=== PATIENT | female | born 1940 | race Caucasian/White ===

== ENCOUNTER 2016-11-01 13:05 | Inpatient (IN) ==
[2016-11-01] MEDS ORDERED: SODIUM CHLORIDE 0.9% 500 ML IV STA (13:29)
[2016-11-01] MEDS ORDERED: cefTRIAXone 1,000 MG in SODIUM CHLORIDE 0.9% 100 ML IV STA (13:35)
[2016-11-01] MEDS ORDERED: ACETAMINOPHEN 325 MG TABLET PO ONE (13:35)
--- NOTE | 2016-11-01 13:40 | Emergency Department Note ---
Reji Gardner Gwan, am scribing for, and in the presence of, Joshua Jones MD 13:35 . Karen Gardner James D, MD, personally performed the services described in this documentation, ascribed by Lloyd Mendoza in my presence, and it is both accurate and complete [id number] . Arrival - Arrival Chief Complaint: Non-Specific Stated Complaint: can't walk,talking out of head,weak ED Nursing Triage Note: Pt c/o GARDNER, back/leg pain, family reports pt has been talking out of her head and not able to stand and walk since Tuesday. Mode of Arrival: Wheelchair Limitations: No Limitations Source: Significant other, Old Records Reviewed, RN Notes Reviewed - History of Present Illness HPI Narrative: Patient is a 75 y/o white female who presents to the ED fore further evaluation of confusion with an onset 9 days ago. At time of traige, pt's temperature was 101.0. Patient has obvious confused. stated that pt is followed by Dr. Marquez. He confirmed that patient has gotten worse since last appointment in office. He denies that pt has had dysuria or that she has been using her walker. Per PCP, this is not baseline for patient. Onset (ago): week(s) Consistency: constant Severity: moderate Allergies/Adverse Reactions: Allergies Allergy/AdvReac Type Severity Reaction Status Date / Time No Known Allergies Allergy Verified 02/03/16 14:52 Home Medications: Home Medications Medication Instructions Recorded Confirmed Type Gabapentin Cap/Tab [Neurontin 300 mg PO BID 02/03/16 11/01/16 History Cap/Tab] LORazepam TAB [Ativan Tab] 1 mg PO BEDTIME 02/03/16 11/01/16 History Solifenacin Succinate [Vesicare] 10 mg PO DAILY 02/03/16 11/01/16 History Metoprolol Tartrate Tab [Lopressor 100 mg PO BID tablet 02/11/16 11/01/16 Rx Tab] Review of System - Review of System 12 point system: reviewed and no additional remarkable complaints except as stated - Review of System Constitutional: Absent: chills, fever Eyes: Absent: discharge, pain Head/Ears/Nose/Throat: Absent: earache Respiratory: Absent: cough Cardiovascular: Absent: chest pain, palpitations Gastrointestinal: Absent: abdominal pain, nausea, constipation Genitourinary female: Absent: abnormal menses, dysuria, discharge Musculoskeletal: Absent: arm pain, back pain, leg pain Skin: Absent: rash, lesions Neurological: Present: as per HPI, confusion Medical,Surgical,& Family Hx - Medical History Cardio: History of: Cardiac Dysrhythmia (TACHYCARDIA PRIOR TO PACEMAKER), Hypertension, Pacemaker (2009), Cardiovascular Problems (DR LEO) Neurology: No history of: Seizures HEENT: History of: Eye Problem (GLASSES), Dental Problems (UPPER DENTURE) Rheumatology: History of;: Rheumatoid Arthritis Genitourinary: History of: Bladder Problem (FREQUENTLY URINATION AND INCONTIENCE ) Gastrointestinal: History of: GERD (PT HISTORY) Musculoskeletal: History of: Back/Neck Problems (BACK SURGERY 2006/2010/2014) Other: History of: Anesthesia Reactions (NAUSEA AND VOMITING WITH NOSE SURGERY) , Cancer (SKIN CA NOSE), Miscellaneous Medical Problems (PCP DR ANDREA MARQUEZ) - Surgical History Abdominal Surgeries: Surgical HX of: EGD Reproductive Surgeries: Surgical HX of;: Tubal Ligation - Family History Family History: Reports;: Family Heart Disease (FATHER) - Social History Smoking Status: Never smoker Exam Physical Examination: GENERAL: This is a white female in no apparent distress. VITAL SIGNS: HEENT: Head is normocephalic and atraumatic. Pupils are equally round and reactive to light. Extraocular movement are intact. Oropharynx is benign with moist mucous membranes. NECK: Neck is soft and supple without tenderness. There are no masses. There is no lymphadenopathy. LUNGS: Lungs are clear to auscultation bilaterally. Chest rises symmetrically. There is no chest wall tenderness. CV: Heart is regular rate and rhythm without murmurs, rubs, or gallops. ABDOMEN: Abdomen is soft, non-tender to palpation. There are no abnormal masses palpated. There is no organomegaly. Bowel sounds are present and active. SKIN: Skin is warm and dry. No rash. EXTREMITIES: Patient has full range of motion without tenderness. There is no pedal edema. NEUROLOGIC: Awake, alert, and oriented 2. Patient is disoriented to time and place.. Cranial nerves II through XII are grossly intact. There are no motorsensory deficits. PSYCHIATRIC: Normal affect. Normal mood. Poor insight. Vital Signs: Vital Signs Temperature 101 F H 11/01/16 14:56 Pulse Rate 85 11/01/16 14:56 Respiratory Rate 20 11/01/16 14:56 Blood Pressure 151/78 11/01/16 14:56 O2 Sat by Pulse Oximetry 95 11/01/16 13:31 Course - Consultations Consultation #1: Discussed with Dr. Marquez. Patient will be admitted to his service. Initial orders written for him. He will assume patient's care upon arrival to the [facility]. Time: 13:39 Results - Labs CBC & BMP: 11/01/16 14:20 11/01/16 14:02 Lab Results: I have reviewed the patients labs Labs: Laboratory Tests 11/01/16 14:20 WBC 10.1 RBC 4.24 Hgb 13.8 Hct 38.8 Plt Count 131 Neut % (Auto) 86.4 H Lymph % (Auto) 5.5 L Neut # (Auto) 8.7 H Lymph # (Auto) 0.6 L - Diagnostic Findings Procedure: Chest x-ray: report reviewed by me, image reviewed by me (Stable is apparent atrioventricular permanent pacemaker. Localized eventration of the left hemidiaphragm with atelectasis at the lung bases. Left shoulders calcific tendinitis. ), CT: report reviewed by me, image reviewed by me (Head CT: Progressive atrophy and extensive microvasculkar disease. This finding could obsure small age-indeterminate ischemic infarction. There is associated minimal compensatory dilataion of the ventricles. ) Disposition Clinical Impression: Altered mental status, Fever Case discussed with: patient, patient's family Disposition: Still a Patient Condition: Stable Time of Disposition: 13:39
--- NOTE | 2016-11-01 13:46 | CT Report ---
Referring physician: Joshua Jones Exam: CT brain without contrast Date: 11/01/2016 Comparison: 09/05/2009 Reason: Alteration of consciousness Technique: Axial images of the head were obtained without the use of contrast. Total DLP was 914.60 mGy*cm. Findings: The ventricles are diffusely larger in size with no midline displacement. Progressive atrophy and diffuse cerebral hypodensities. No evidence of hemorrhage, mass, extracerebral collection, or skull pathology. The mastoid air cells and visualized paranasal sinuses are clear. Impression: Progressive atrophy and extensive microvascular disease. This finding could obscure small age-indeterminate ischemic infarction. There is associated minimal compensatory dilatation of the ventricles. The CT exam was performed using one or more of the following dose reduction techniques: Automated exposure control and adjustment of the mA and/or kV according to patient size. PROCEDURE INTERPRETED AT [facility] DEPARTMENT OF RADIOLOGY Final Report Signed by: Dr. Emiliana Calvo
--- NOTE | 2016-11-01 13:50 | XRay Report ---
Portable chest Date: 11/01/2016 Clinical history: Alteration of consciousness Comparison: 02/03/2016 Technique: Portable AP sitting chest Findings: The heart is normal in size with stable left subclavian atrioventricular permanent pacemaker. Persistent localized eventration left hemidiaphragm with minimal atelectasis at the lung bases. Stable mediastinum with degenerative changes. Calcific findings adjacent to the left humeral head. Impression: Stable is apparent atrioventricular permanent pacemaker. Localized eventration of the left hemidiaphragm with atelectasis at the lung bases. Left shoulder calcific tendinitis. PROCEDURE INTERPRETED AT [facility] DEPARTMENT OF RADIOLOGY Final Report Signed by: Dr. Emiliana Calvo
[2016-11-01 14:22] LABS: Basophils % 0.1 % (0.0-0.8); Eosinophils % 0.1 % (0.00-10.9); Hematocrit 38.8 VOL% (35.7-47.0); Hemoglobin 13.8 GM/DL (12.0-16.0); Immature Granulocytes % 0.3 %; Immature Granulocytes Absolute 0.03 #; Lymphocytes # 0.6 10*3/uL (1.4-4.0); Lymphocytes % 5.5 % (21.3-54.2); Mean Corpuscular HGB Conc 35.6 GM/DL (32-36); Mean Corpuscular Hemoglobin 33 PG (27-34); Mean Corpuscular Volume 91.5 FL (87-102); Monocytes # 0.8 10*3/uL (0.11-0.8); Monocytes % 7.6 % (1.7-12.7); Neutrophils # 8.7 10*3/uL (1.4-7.4); Neutrophils % 86.4 % (38.7-73.9); Platelet Count 131 T/CUMM (130-400); Red Blood Count 4.24 MC/CUMM (3.8-5.5); Red Cell Distribution Width 12.4 % (9.3-17.3); White Blood Count 10.1 T/CUMM (4-12)
[2016-11-01 14:59] LABS: Alanine Aminotransferase 34 U/L (13-56); Albumin 3.5 G/DL (3.4-5.0); Alkaline Phosphatase 90 U/L (45-117); Aspartate Amino Transferase 26 U/L (0-37); Blood Urea Nitrogen 17 MG/DL (7-18); Calcium 8.8 MG/DL (8.5-10.1); Glucose 140 MG/DL (74-106); Osmolality,Calculated 265.7 MOS/KG (273-304); Potassium 3.9 MMOL/L (3.5-5.1); Sodium 131 MMOL/L (136-145); Thyroid Stimulating Hormone 0.085 uIU/ml (0.358-3.74); Total Protein 7.3 G/DL (6.4-8.3); Troponin I Only < 0.015 NG/ML (0.00-0.045)
[2016-11-01 15:01] LABS: Folate > 24.0 NG/ML (5.4-24.0); Vitamin B12 474 PG/ML (211-911)
[2016-11-01] MEDS ORDERED: cefTRIAXone 1,000 MG VIAL ONE (15:22)
[2016-11-01] MEDS ORDERED: ACETAMINOPHEN 325 MG TABLET ONE (15:33)
[2016-11-01 15:53] LABS: PT Patient Result 10.3 SECS; Partial Thromboplastin Time 28.7 SECS (0-40)
--- NOTE | 2016-11-01 16:05 | Family Practice History&Phys ---
Assessment and Plan (1) Altered mental status Status: Acute Assessment and plan: In view of history of fever and present urinary symptoms this is probably a urosepsis with encephalopathy . Will await urine and obtain a C&S. Current Visit: Yes (2) Fever Status: Acute Assessment and plan: Probably secondary to urinary tract infection but need to collect further data Current Visit: Yes (3) Permanent pacemaker Status: Chronic Assessment and plan: Stable at present Current Visit: Yes (4) Rheumatoid arthritus Status: Chronic Assessment and plan: Stable on present medication Current Visit: Yes (5) Hypertension Status: Chronic Assessment and plan: Stable at present Current Visit: Yes (6) Chronic pain syndrome Status: Chronic Assessment and plan: Patient being treated pain center. Current Visit: Yes History of Present Illness Chief complaint: Mental confusion and fever History of present illness: Ms. Escobar is a 75 year old female Patient is a 75 y/o white female who presents to the ED fore further evaluation of confusion with an onset 9 days ago. At time of traige, pt's temperature was 101.0. Patient is obviously confused. Her mental state is an obvious significant change from her baseline. With her fever and other changes this most likely is encephalopathy secondary to infection. In view of history we will admit further evaluation therapy Home Medications Medication Instructions Recorded Confirmed Type Gabapentin Cap/Tab [Neurontin 300 mg PO BID 02/03/16 11/01/16 History Cap/Tab] LORazepam TAB [Ativan Tab] 1 mg PO BEDTIME 02/03/16 11/01/16 History Solifenacin Succinate [Vesicare] 10 mg PO DAILY 02/03/16 11/01/16 History Metoprolol Tartrate Tab [Lopressor 100 mg PO BID tablet 02/11/16 11/01/16 Rx Tab] Allergies Allergy/AdvReac Type Severity Reaction Status Date / Time No Known Allergies Allergy Verified 02/03/16 14:52 Medical,Surgical,& Family Hx - Medical History Cardio: History of: Cardiac Dysrhythmia (TACHYCARDIA PRIOR TO PACEMAKER), Hypertension, Pacemaker (2008), Cardiovascular Problems (DR LEO) Neurology: No history of: Seizures HEENT: History of: Eye Problem (GLASSES), Dental Problems (UPPER DENTURE) Rheumatology: History of;: Rheumatoid Arthritis Genitourinary: History of: Bladder Problem (FREQUENTLY URINATION AND INCONTIENCE ) Gastrointestinal: History of: GERD (PT HISTORY) Musculoskeletal: History of: Back/Neck Problems (BACK SURGERY 2006/2010/2014) Other: History of: Anesthesia Reactions (NAUSEA AND VOMITING WITH NOSE SURGERY) , Cancer (SKIN CA NOSE), Miscellaneous Medical Problems (PCP DR ANDREA OLIVARES) - Surgical History Abdominal Surgeries: Surgical HX of: EGD Reproductive Surgeries: Surgical HX of;: Tubal Ligation - Family History Family History: Reports;: Family Heart Disease (FATHER) - Social History Smoking Status: Never smoker Frequency of Alcohol Use: None Type of Drug Use: None Marital Status: Lives With:: Spouse Functional capacity: independent ambulation Exam - Constitutional Vitals: Period Temp Pulse Resp BP Sys/Kelly Pulse Ox Last 24 Hr 99.7 F-101.0 F 60-87 18-20 141-151/68-78 94-97 General appearance: mild distress - Head Head exam: Present: normal inspection - ENT ENT exam: Present: normal exam - Neck Neck exam: Present: normal inspection - Respiratory Respiratory exam: Present: clear to auscultation bilaterally - Cardiovascular Cardiovascular exam: Present: irregular rhythm - GI/Abdominal GI/Abdominal exam: Present: normal bowel sounds, soft, other (Slight epigastric tenderness) - Extremities Exam Extremities exam: Present: other (Pain and swelling in her right knee) - Back Exam Back exam: Present: normal inspection - Neurological Exam Neurological exam: Present: altered, other (Patient is confused and disoriented at time of admission) - Psychiatric Psychiatric exam: Present: flat affect - Skin Skin exam: Present: normal color Results - Labs CBC & BMP: 11/02/16 05:15 11/02/16 05:15
[2016-11-01] MEDS ORDERED: ONDANSETRON 4 MG/2 ML VIAL IV PRN (16:23)
[2016-11-01] MEDS: SODIUM CHLORIDE 0.9% 1,000 ML IV SCH (16:30)
[2016-11-01] MEDS: SOLIFENACIN 5 MG TABLET PO SCH (18:14)
[2016-11-01 19:54] LABS: Ammonia 29 UMOL/L (11-32)
[2016-11-01] MEDS: LORazepam 1 MG TABLET PO SCH (21:23)
[2016-11-01] MEDS: GABAPENTIN 300 MG CAPSULE PO SCH (21:23)
[2016-11-01] MEDS: METOPROLOL TARTRATE 100 MG TABLET PO SCH (21:23)
[2016-11-01] MEDS: ACETAMINOPHEN 325 MG TABLET PO PRN (21:24)
[2016-11-01] MEDS: DOCUSATE SODIUM 100 MG CAPSULE PO SCH (21:24)
[2016-11-02] MEDS: SODIUM CHLORIDE 0.9% 1,000 ML IV SCH ×3 (00:30→18:12)
[2016-11-02 05:54] LABS: Basophils % 0.3 % (0.0-0.8); Eosinophils # 0.1 10*3/uL (0.0-0.87); Eosinophils % 0.7 % (0.00-10.9); Hematocrit 35.9 VOL% (35.7-47.0); Hemoglobin 12.3 GM/DL (12.0-16.0); Immature Granulocytes % 0.4 %; Immature Granulocytes Absolute 0.04 #; Lymphocytes # 1.5 10*3/uL (1.4-4.0); Lymphocytes % 16.3 % (21.3-54.2); Mean Corpuscular HGB Conc 34.3 GM/DL (32-36); Mean Corpuscular Hemoglobin 32 PG (27-34); Mean Corpuscular Volume 92.8 FL (87-102); Mean Platelet Volume 11.4 FL (9.6-12.0); Monocytes # 1.3 10*3/uL (0.11-0.8); Monocytes % 14.3 % (1.7-12.7); Neutrophils # 6.2 10*3/uL (1.4-7.4); Platelet Count 196 T/CUMM (130-400); Red Blood Count 3.87 MC/CUMM (3.8-5.5); Red Cell Distribution Width 12.5 % (9.3-17.3); White Blood Count 9.1 T/CUMM (4-12)
[2016-11-02 06:21] LABS: Calcium 8.3 MG/DL (8.5-10.1); Potassium 3.9 MMOL/L (3.5-5.1)
[2016-11-02 06:34] LABS: Free T4 (Free Thyroxine) 1.54 NG/DL (0.76-1.46); Thyroid Stimulating Hormone 0.072 uIU/ml (0.358-3.74)
--- NOTE | 2016-11-02 09:08 | XRay Report ---
Exam: XR knee 2V RT Date: 11/02/2016 8:10 AM Comparison: None Indication: Severe right knee pain Technique:[AP and lateral right knee] Findings: Knee joint space narrowing especially the patellofemoral space. Patellar osteophytes. Small to moderate knee joint effusion with no fracture or dislocation. Minimal soft tissue calcifications. Impression: Minimal DJD with small to moderate knee joint effusion. No acute fracture or dislocation. PROCEDURE INTERPRETED AT [facility] DEPARTMENT OF RADIOLOGY Final Report Signed by: Dr. Emiliana Calvo
[2016-11-02] MEDS: PANTOPRAZOLE 40 MG TABLET PO SCH (09:10)
[2016-11-02] MEDS: METOPROLOL TARTRATE 100 MG TABLET PO SCH ×2 (09:10→20:57)
[2016-11-02] MEDS: GABAPENTIN 300 MG CAPSULE PO SCH ×2 (09:10→20:57)
[2016-11-02] MEDS: SOLIFENACIN 5 MG TABLET PO SCH (09:10)
[2016-11-02] MEDS: DOCUSATE SODIUM 100 MG CAPSULE PO SCH ×2 (09:10→20:57)
[2016-11-02 10:05] LABS: Apearance,Urine Slightly Hazy (Clear); Bilirubin,Urine Negative (Negative); Blood, Urine Small mg/dL (Negative); Glucose,Urine (UA) Negative (Negative); Ketones,Urine Negative (Negative); Nitrite,Urine Positive (Negative); Protein,Urine Negative; RBC,Urine <1 /HPF (0-4); Urine Color Yellow (Yellow); Urine Specific Gravity 1.008 (1.001-1.035); Urine Urobilinogen < 2.0 EU/DL (0.2-1.0); WBC,Urine 20 /HPF (0-6)
--- NOTE | 2016-11-02 13:56 | Family Practice Progress Note ---
Family Practice - PN: Subj Interval history: Patient much more alert today. States she doesn't remember anything about yesterday. Patient never collected a urine specimen yesterday prior to starting her antibiotics. She has urinary incontinence and was not able to collect a specimen. Had staph pain a catheter urine this a.m. which is positive for urinary tract infection. I will obtain a culture but it may not grow because she's already been started on antibiotics. I do feel that this is the etiology of her mental status change secondary to encephalopathy. Patient complaining of knee and joint pain today. She has chronic joint and back pain. Reviewed lab and other studies. We'll obtain an x-ray of her knee and started on physical therapy. We'll otherwise continue present antibiotic treatment Exam (Progress Note) - Constitutional Vitals: Period Temp Pulse Resp BP Sys/Kelly Pulse Ox Last 24 Hr 98.5 F-101 F 69-87 16-20 118-153/54-80 92-99 Results - Labs CBC & BMP: 11/02/16 05:15 11/02/16 05:15 Assessment and Plan (1) Altered mental status Status: Acute Assessment and plan: In view of history of fever and present urinary symptoms this is probably a urosepsis with encephalopathy . Will await urine and obtain a C&S. Current Visit: Yes (2) Fever Status: Acute Assessment and plan: Probably secondary to urinary tract infection but need to collect further data Current Visit: Yes (3) Permanent pacemaker Status: Chronic Assessment and plan: Stable at present Current Visit: Yes (4) Rheumatoid arthritus Status: Chronic Assessment and plan: Stable on present medication Current Visit: Yes (5) Hypertension Status: Chronic Assessment and plan: Stable at present Current Visit: Yes (6) Chronic pain syndrome Status: Chronic Assessment and plan: Patient being treated pain center. Current Visit: Yes
--- NOTE | 2016-11-02 17:42 | Neurology Consult Note ---
History of Present Illness History of present illness: Ms. Escobar is a 75 year old right-handed white lady who is admitted to the hospital with acute change in mental status. Family reported that she has been talking out of her head and got confused and disoriented. Patient has been keeping a low-grade infection somewhere because she came in with a fever as well. Urine specimen reveals some signs of UTI. Family denies any history of dementia, memory difficulties. She is quite active at baseline. CT of the head reveals no acute abnormalities. Home Medications Medication Instructions Recorded Confirmed Type Gabapentin Cap/Tab [Neurontin 300 mg PO BID 02/03/16 11/01/16 History Cap/Tab] LORazepam TAB [Ativan Tab] 1 mg PO BEDTIME 02/03/16 11/01/16 History Solifenacin Succinate [Vesicare] 10 mg PO DAILY 02/03/16 11/01/16 History Metoprolol Tartrate Tab [Lopressor 100 mg PO BID tablet 02/11/16 11/01/16 Rx Tab] Allergies Allergy/AdvReac Type Severity Reaction Status Date / Time No Known Allergies Allergy Verified 02/03/16 14:52 12 point system: reviewed and no additional remarkable complaints except as stated Medical,Surgical,& Family Hx - Medical History Cardio: History of: Cardiac Dysrhythmia (TACHYCARDIA PRIOR TO PACEMAKER), Hypertension, Pacemaker (2008), Cardiovascular Problems (DR LEO) Neurology: No history of: Seizures HEENT: History of: Eye Problem (GLASSES), Dental Problems (UPPER DENTURE) Rheumatology: History of;: Rheumatoid Arthritis Genitourinary: History of: Bladder Problem (FREQUENTLY URINATION AND INCONTIENCE ) Gastrointestinal: History of: GERD (PT HISTORY) Musculoskeletal: History of: Back/Neck Problems (BACK SURGERY 2006/2010/2014) Other: History of: Anesthesia Reactions (NAUSEA AND VOMITING WITH NOSE SURGERY) , Cancer (SKIN CA NOSE), Miscellaneous Medical Problems (PCP DR ANDREA OLIVARES) - Surgical History Abdominal Surgeries: Surgical HX of: EGD Reproductive Surgeries: Surgical HX of;: Tubal Ligation - Family History Family History: Reports;: Family Heart Disease (FATHER) - Social History Smoking Status: Never smoker Frequency of Alcohol Use: None Type of Drug Use: None Exam - Constitutional Vitals: Period Temp Pulse Resp BP Sys/Kelly Pulse Ox Last 24 Hr 98.5 F-100.3 F 69-81 16-20 118-153/54-80 92-99 Exam: GENERAL: Patient is in no acute distress. NECK: Neck is supple. There is no JVD. No carotid bruits present. No thyroid masses. CVS: First and second heart sounds are normal. There is no S3 present. Regular rate and rhythm. RESPIRATORY: Lungs are clear to auscultation without any rales or rhonchi. ABDOMEN: Soft and non-tender. Bowel sounds are present. There is no hepatosplenomegaly. EXT: There is no palpable edema. Peripheral pulses are present. Skin: No rashes Central Nervous system: General: Alert, awake and Oriented x 3 Speech: Fluent Comprehension: Fair Facial expressions: Normal Cranial Nerves: CN1/Olfactory: Normal CN II/ Optic: Normal, Visual Schmidt unreliable CN III, and : SONA & EOMI CN V: Normal & intact CN VII: face is symmetric CNVIII: Normal CN XI/X/XI/XII: Intact and Normal Motor: Bulk and Tone is normal. Strength in the right 5/5 Strength in the left 5/5 Sensory: Grossly intact for all the modalities of PP, LT and temp sense Reflexes: 1+ and symmetrical Cerebellar function: Normal finger to nose and heel to quijano testing. Toes: Equivocal Gait: Not tested at this time Results - Labs CBC & BMP: 11/02/16 05:15 11/02/16 05:15 Assessment and Plan (1) Altered mental status Status: Acute Assessment and plan: I agree that this is likely due to the low-grade infection/UTI. No evidence of a stroke, TIAs, epilepsy or seizures Certainly an underlying dementia cannot be excluded entirely. Recommend further workup as an outpatient Thank you for the consult Current Visit: Yes
[2016-11-02] MEDS: LORazepam 1 MG TABLET PO SCH (20:57)
[2016-11-03] MEDS: SODIUM CHLORIDE 0.9% 1,000 ML IV SCH ×3 (00:58→23:32)
[2016-11-03 04:09] LABS: Basophils % 0.2 % (0.0-0.8); Eosinophils # 0.1 10*3/uL (0.0-0.87); Eosinophils % 0.7 % (0.00-10.9); Hemoglobin 10.7 GM/DL (12.0-16.0); Immature Granulocytes % 0.5 %; Immature Granulocytes Absolute 0.04 #; Lymphocytes # 1.5 10*3/uL (1.4-4.0); Lymphocytes % 17.2 % (21.3-54.2); Mean Corpuscular HGB Conc 34.5 GM/DL (32-36); Mean Corpuscular Hemoglobin 32 PG (27-34); Mean Corpuscular Volume 91.4 FL (87-102); Mean Platelet Volume 11.6 FL (9.6-12.0); Monocytes # 1.1 10*3/uL (0.11-0.8); Monocytes % 12.2 % (1.7-12.7); Neutrophils # 6.1 10*3/uL (1.4-7.4); Neutrophils % 69.2 % (38.7-73.9); Platelet Count 165 T/CUMM (130-400); Red Blood Count 3.39 MC/CUMM (3.8-5.5); Red Cell Distribution Width 12.5 % (9.3-17.3); White Blood Count 8.8 T/CUMM (4-12)
[2016-11-03 04:36] LABS: Calcium 8.3 MG/DL (8.5-10.1); Osmolality,Calculated 271.8 MOS/KG (273-304); Potassium 3.6 MMOL/L (3.5-5.1)
[2016-11-03] MEDS ORDERED: MAGNESIUM HYDROXIDE SUSP 30 ML UDCUP PO ONE (07:55)
[2016-11-03] MEDS ORDERED: BENZOCAINE/MENTHOL LOZENGE 18/BOX PO PRN (07:56)
--- NOTE | 2016-11-03 08:00 | Family Practice Progress Note ---
Family Practice - PN: Subj Interval history: Patient back to her normal mental status this am. Complaining of sore throat and constipation this a.m. Still has pain in her knees which is more of a chronic complaint. X-rays revealed degenerative joint disease. Urine is positive urinary tract infection. She was given Rocephin in the emergency room which will probably affect culture but we will obtained a culture which is pending of. Will start on Levaquin today. Will increase activity and if patient does well consider discharge a.m. physical is otherwise stable Exam (Progress Note) - Constitutional Vitals: Period Temp Pulse Resp BP Sys/Kelly Pulse Ox Last 24 Hr 99.4 F-100.2 F 61-103 16-20 135-163/70-73 96-97 Results - Labs CBC & BMP: 11/03/16 03:09 11/03/16 03:09 Assessment and Plan (1) Altered mental status Status: Acute Assessment and plan: In view of history of fever and present urinary symptoms this is probably a urosepsis with encephalopathy . Will await urine and obtain a C&S. Current Visit: Yes (2) Fever Status: Acute Assessment and plan: Probably secondary to urinary tract infection but need to collect further data Current Visit: Yes (3) Permanent pacemaker Status: Chronic Assessment and plan: Stable at present Current Visit: Yes (4) Rheumatoid arthritus Status: Chronic Assessment and plan: Stable on present medication Current Visit: Yes (5) Hypertension Status: Chronic Assessment and plan: Stable at present Current Visit: Yes (6) Chronic pain syndrome Status: Chronic Assessment and plan: Patient being treated pain center. Current Visit: Yes
[2016-11-03] MEDS: DOCUSATE SODIUM 100 MG CAPSULE PO SCH ×2 (09:52→21:31)
[2016-11-03] MEDS: GABAPENTIN 300 MG CAPSULE PO SCH ×2 (09:52→21:31)
[2016-11-03] MEDS: METOPROLOL TARTRATE 100 MG TABLET PO SCH ×2 (09:52→21:32)
[2016-11-03] MEDS: PANTOPRAZOLE 40 MG TABLET PO SCH (09:52)
[2016-11-03] MEDS: SOLIFENACIN 5 MG TABLET PO SCH (09:52)
[2016-11-03] MEDS: LEVOFLOXACIN INJ 500 MG in PREMIX 1 EACH IV SCH (09:53)
[2016-11-03] MEDS: ACETAMINOPHEN 325 MG TABLET PO PRN ×2 (10:51→21:30)
--- NOTE | 2016-11-03 10:52 | Physician Query Form ---
CLICK EDIT DOCUMENT TO SELECT QUERY ANSWER --> OK --> SIGN Clemencia Rahman RN Clinical Gift Officer W) [phone] (f) [phone] [email or web address] PROVIDERS: Make your selection(s) from the choices in EACH section by typing an "x" and enter comments in the comment section. Please use your independent medical judgment in providing your response. This request does not imply that any particular answer is desired or expected. CLINICAL INDICATORS: (Providers should not edit this section) Based on documentation of "Acute AMS " "secondary to encephalopathy" Treated with NS bolus, IV Rocephin, and IV Levaquin. Please clarify the acuity of the diagnosis of Encephalopathy Clarify which of the following accurately represents the acuity of the above diagnosis. ( x) Acute ( ) Acute on chronic ( ) Chronic stable condition ( ) Remission ( ) Other, please specify: ( ) Clinically unable to determine COMMENTS: PLEASE ALSO DOCUMENT RESPONSE IN PROGRESS NOTES AND/OR DISCHARGE SUMMARY Use of terms such as suspected, likely, or probable (associated with a specific diagnosis that is being evaluated, monitored, or treated as if it exists) are acceptable and can be restated in the discharge summary if not ruled out. [facility]
[2016-11-03] MEDS: LORazepam 1 MG TABLET PO SCH (21:32)
[2016-11-04 05:39] LABS: Basophils % 0.2 % (0.0-0.8); Eosinophils # 0.1 10*3/uL (0.0-0.87); Eosinophils % 1.3 % (0.00-10.9); Hematocrit 31.1 VOL% (35.7-47.0); Hemoglobin 10.6 GM/DL (12.0-16.0); Immature Granulocytes % 0.4 %; Immature Granulocytes Absolute 0.03 #; Lymphocytes # 1.5 10*3/uL (1.4-4.0); Lymphocytes % 18.1 % (21.3-54.2); Mean Corpuscular HGB Conc 34.1 GM/DL (32-36); Mean Corpuscular Hemoglobin 32 PG (27-34); Mean Corpuscular Volume 92.8 FL (87-102); Mean Platelet Volume 10.9 FL (9.6-12.0); Monocytes # 0.9 10*3/uL (0.11-0.8); Monocytes % 10.5 % (1.7-12.7); Neutrophils # 5.9 10*3/uL (1.4-7.4); Neutrophils % 69.5 % (38.7-73.9); Platelet Count 195 T/CUMM (130-400); Red Blood Count 3.35 MC/CUMM (3.8-5.5); Red Cell Distribution Width 12.6 % (9.3-17.3); White Blood Count 8.5 T/CUMM (4-12)
[2016-11-04 06:02] LABS: Calcium 8.5 MG/DL (8.5-10.1); Osmolality,Calculated 271.8 MOS/KG (273-304); Potassium 3.7 MMOL/L (3.5-5.1)
--- NOTE | 2016-11-04 08:19 | Discharge Summary ---
Hospital Course - Hospital Course Hospital Course: Ms. Escobar is a 75 year old female Patient is a 75 y/o white female who presents to the ED fore further evaluation of confusion with an onset 9 days ago. At time of traige, pt's temperature was 101.0. Patient is obviously confused. Her mental state is an obvious significant change from her baseline. With her fever and other changes this most likely is encephalopathy secondary to infection. In view of history we will admit further evaluation therapy HOSPITAL COURSE -patient was admitted hospital lab and x-ray studies obtained. A urinalysis was not initially obtained in the emergency room. She was given IV Rocephin in the emergency room. Subsequently obtained a cath urine after patient had been given antibiotics. As result both blood and urine cultures were no growth. Patient had definite urinary tract infection on urinalysis. His almost certain that her symptoms were related to a encephalopathy secondary to the urinary tract infection. Patient much improved back to her base line mental state at time of discharge. Discharge to home care and plan follow-up to clinic one week sooner as needed. Will have patient call or return to the emergency room if condition worsens or new problems develop Diagnosis - Discharge Diagnosis (1) UTI with encephalopathy Status: Acute (2) Altered mental status Status: Acute (3) Fever Status: Acute (4) Permanent pacemaker Status: Chronic (5) Rheumatoid arthritus Status: Chronic (6) Hypertension Status: Chronic (7) Chronic pain syndrome Status: Chronic Discharge Plan - Discharge Data Disposition: Disch To Home/Self Care Condition at Discharge: Stable Discharge Diet: advance to your usual diet Activity: resume usual activities as tolerated Weight Bearing at Discharge: full weight bearing Contact your physician if you experience:: fever over 101, Shortness of breath - Discharge Medications New Levofloxacin Tab [Levaquin Tab] 500 mg PO DAILY #10 tablet Continue Solifenacin Succinate [Vesicare] 10 mg PO DAILY LORazepam TAB [Ativan Tab] 1 mg PO BEDTIME Gabapentin Cap/Tab [Neurontin Cap/Tab] 300 mg PO BID Metoprolol Tartrate Tab [Lopressor Tab] 100 mg PO BID tablet - Follow Up or Referral Follow Up: Damian Marquez DO [Primary Care Provider] - 1 Week - Forms/Instructions Exam - Constitutional Vitals: Period Temp Pulse Resp BP Sys/Kelly Pulse Ox Last 24 Hr 98.7 F-99.5 F 77-123 20-24 115-161/60-79 94-96 General appearance: normal weight, no acute distress - Head Head exam: Present: normal inspection - ENT ENT exam: Present: normal exam - Neck Neck exam: Present: normal inspection - Respiratory Respiratory exam: Present: clear to auscultation bilaterally - Cardiovascular Cardiovascular exam: Present: regular rate and rhythm - GI/Abdominal GI/Abdominal exam: Present: normal bowel sounds, soft - Extremities Exam Extremities exam: Present: normal inspection - Back Exam Back exam: Present: normal inspection - Neurological Exam Neurological exam: Present: alert - Psychiatric Psychiatric exam: Present: normal affect Discharge Results Procedures and tests throughout hospitalization: Pending Orders 11/01/16 19:15 Blood Culture Stat Labs on day of discharge: Labs from last 24 hours 11/04/16 11/04/16 05:26 05:26 WBC 8.5 RBC 3.35 L Hgb 10.6 L Hct 31.1 L MCV 92.8 MCH 32 MCHC 34.1 RDW 12.6 Plt Count 195 MPV 10.9 Neut % (Auto) 69.5 Lymph % (Auto) 18.1 L Ransom % (Auto) 10.5 Eos % (Auto) 1.3 Baso % (Auto) 0.2 Neut # (Auto) 5.9 Lymph # (Auto) 1.5 Ransom # (Auto) 0.9 H Eos # (Auto) 0.1 Baso # (Auto) 0.0 Immature Gran % 0.4 Nucleated RBC % 0.0 Immature Gran # 0.03 Nucleated RBCs # 0.00 Sodium 137 Potassium 3.7 Chloride 102 Carbon Dioxide 28 Anion Gap 10.7 BUN 10 Creatinine 0.90 GFR Calculation 67 BUN/Creatinine Ratio 11.00 Glucose 103 Calculated Osmolality 271.8 L Calcium 8.5 Preliminary micro results at discharge 11/01/16 19:15 Blood Culture - Preliminary Blood No growth at 1 day 11/01/16 15:27 Blood Culture - Preliminary Blood No growth at 1 day DS: Provider Date of admission: 11/01/16 13:40 History of present illness: Ms. Escobar is a 75 year old female Patient is a 75 y/o white female who presents to the ED fore further evaluation of confusion with an onset 9 days ago. At time of traige, pt's temperature was 101.0. Patient is obviously confused. Her mental state is an obvious significant change from her baseline. With her fever and other changes this most likely is encephalopathy secondary to infection. In view of history we will admit further evaluation therapy HOSPITAL COURSE -patient was admitted hospital lab and x-ray studies obtained. Urinalysis was not obtained to the emergency room prior to patient being started on antibiotics. Subsequent cath urine revealed urinary tract infection. Patient was started on appropriate antibiotics but blood and urine cultures were negative. This would be expected due to the fact that she had already given antibiotics prior to obtaining cultures. Patient has had a rapid response back to her normal mental state. She is much improved at time of discharge . Will discharge to home care and follow in the office. Have patient call or return to emergency room condition worsening problems develop Primary care physician: Damian Marquez DO Attending physician on admission: Damian Marquez DO Consults: 11/01/16 16:23 Consult to Case Mgmt/Social Srvs [CONS] Routine Reason for Case Mgmt/Social Srvs: Discharge Planning Consult to Physician [CONS] Routine Comment: altered mental status Consulting Provider: Ang Guerra Consult Notification Comment: DR GUERRA STATED HE WILL SEE PT. IN THE A.M. RP 11/01/16 16:32 Consult to Pastoral Services [CONS] Routine Comment: Pastoral Screen: Request [employer] Tech Lead Visit 11/02/16 08:12 Consult to Physical Therapy [CONS] Routine Reason for Physical Therapy: Evaluate and Treat Start Therapy: Today Consult Comment: Evaluate and treat her right knee pain Discharging clinician: Damian Marquez DO
[2016-11-04] MEDS ORDERED: NYSTATIN 500,000 UNIT/5 ML UDCUP SWISH/SWAL SCH ×2 (09:00)
[2016-11-04] MEDS ORDERED: LEVOFLOXACIN 500 MG TABLET PO SCH (09:00)
[2016-11-04] MEDS: LEVOFLOXACIN INJ 500 MG in PREMIX 1 EACH IV SCH (09:02)
[2016-11-04] MEDS: GABAPENTIN 300 MG CAPSULE PO SCH (09:18)
[2016-11-04] MEDS: DOCUSATE SODIUM 100 MG CAPSULE PO SCH (09:19)
[2016-11-04] MEDS: METOPROLOL TARTRATE 100 MG TABLET PO SCH (09:19)
[2016-11-04] MEDS: SOLIFENACIN 5 MG TABLET PO SCH (09:19)
[2016-11-04] MEDS: PANTOPRAZOLE 40 MG TABLET PO SCH (09:20)
[2016-11-04 09:45] VITALS: BP 153/81
[2016-11-04] MEDS: SODIUM CHLORIDE 0.9% 1,000 ML IV SCH (10:17)
== END 2016-11-04 11:00 | disposition home or self-care (01) | DRG 689 ==
LOC: N.ED 13:05 → N.EDINP 13:40 → N.2E 14:07
PROVIDERS: ADMIT Family Medicine; ATTEND Family Medicine

== ENCOUNTER 2019-08-31 09:15 | Inpatient (IN) ==
[2019-08-31] MEDS ORDERED: HYDROXYCHLOROQUINE 200 MG TABLET PO STA (09:42)
[2019-08-31] MEDS ORDERED: AZITHROMYCIN INJ 500 MG in SODIUM CHLORIDE 0.9% 250 ML IV STA ×2 (09:42→10:47)
[2019-08-31] MEDS ORDERED: methylPREDNISolone SOD SUC 125 MG/2 ML VIAL IV STA ×2 (09:42→09:51)
[2019-08-31] MEDS ORDERED: ONDANSETRON 4 MG/2 ML VIAL IV STA (09:42)
[2019-08-31 10:52] LABS: PT Patient Result 10.7 SECS (9.8-11.9)
[2019-08-31 10:58] LABS: Apearance,Urine CLEAR (Clear); Bilirubin,Urine Negative (Negative); Blood, Urine Negative (Negative); Glucose,Urine (UA) Negative (Negative); Hyaline Casts,Urine 1 /LPF (0-3); Ketones,Urine 5 mg/dL (Negative); Nitrite,Urine Negative (Negative); Protein,Urine Negative; RBC,Urine 2 /HPF (0-4); Squamous Epithelial Cell,Urine Occasional /HPF (0-10); Urine Color Yellow (Yellow); Urine Specific Gravity 1.014 (1.001-1.035); Urine Urobilinogen < 2.0 EU/DL (0.2-1.0); WBC,Urine 3 /HPF (0-6)
[2019-08-31 10:59] LABS: Alanine Aminotransferase 20 U/L (13-56); Albumin 3.8 G/DL (3.4-5.0); Alkaline Phosphatase 89 U/L (45-117); Aspartate Amino Transferase 17 U/L (0-37); Blood Urea Nitrogen 17 MG/DL (7-18); Calcium 9.1 MG/DL (8.5-10.1); Estimated Glom Filtration Rate 49 ML/MIN; Ferritin 124.9 ng/ml (8-252); Glucose 144 MG/DL (74-106); Osmolality,Calculated 270.4 MOS/KG (273-304); Total Protein 7.9 G/DL (6.4-8.3); Troponin I < 0.015 NG/ML (0.00-0.045)
[2019-08-31 11:12] LABS: Partial Thromboplastin Time 20.7 SECS (23.9-33.8)
[2019-08-31] MEDS ORDERED: cefTRIAXone 1,000 MG in SODIUM CHLORIDE 0.9% 100 ML IV STA (11:34)
[2019-08-31 11:48] LABS: Basophils % 0.2 % (0.0-0.8); Eosinophils # 0.2 10*3/uL (0.0-0.87); Eosinophils % 0.8 % (0.00-10.9); Hemoglobin 15.5 GM/DL (12.0-16.0); Immature Granulocytes % 0.9 %; Lymphocytes # 0.8 10*3/uL (1.4-4.0); Lymphocytes % 3.4 % (21.3-54.2); Mean Corpuscular HGB Conc 33.7 GM/DL (32-36); Mean Corpuscular Volume 92.7 FL (87-102); Mean Platelet Volume 10.2 FL (9.6-12.0); Monocytes % 6.2 % (1.7-12.7); Neutrophils % 88.5 % (38.7-73.9); Platelet Count 182 T/CUMM (130-400); Red Blood Count 4.96 MC/CUMM (3.8-5.5); Red Cell Distribution Width 12.5 % (9.3-17.3); White Blood Count 23.5 T/CUMM (4-12)
[2019-08-31] MEDS ORDERED: ONDANSETRON 4 MG/2 ML VIAL IV PRN (12:04)
[2019-08-31] MEDS ORDERED: AZITHROMYCIN INJ 500 MG in SODIUM CHLORIDE 0.9% 250 ML IV SCH (12:30)
[2019-08-31 12:46] LABS: Band Neutrophils 1 % (0-10); Eosinophils 1 % (0-10); Hypochromasia Slight; Lymphocytes 1 % (20-55); Platelet Estimate Adequate; Segmented Neutrophils 92 % (50-85); Total Cells Counted 100
[2019-08-31] MEDS ORDERED: LORazepam 1 MG TABLET PO PRN (14:39)
[2019-08-31] MEDS ORDERED: methylPREDNISolone SOD SUC 40 MG/1 ML VIAL IV SCH (15:00)
[2019-08-31] MEDS ORDERED: FUROSEMIDE 40 MG TABLET PO ONE (15:05)
[2019-08-31] MEDS: ENOXAPARIN 40 MG/0.4 ML SYRINGE SUBCUT SCH (16:35)
[2019-08-31] MEDS ORDERED: HYDROXYCHLOROQUINE 200 MG TABLET PO ONE (21:00)
[2019-08-31] MEDS: GABAPENTIN 600 MG TABLET PO SCH (21:56)
[2019-08-31] MEDS: SOTALOL 80 MG TABLET PO SCH (21:56)
[2019-08-31] MEDS: METOPROLOL TARTRATE 100 MG TABLET PO SCH (21:56)
[2019-09-01 05:51] LABS: Basophils % 0.2 % (0.0-0.8); Eosinophils # 0.1 10*3/uL (0.0-0.87); Eosinophils % 0.2 % (0.00-10.9); Hemoglobin 14.2 GM/DL (12.0-16.0); Immature Granulocytes % 0.5 %; Immature Granulocytes Absolute 0.11 #; Lymphocytes # 0.8 10*3/uL (1.4-4.0); Lymphocytes % 3.8 % (21.3-54.2); Mean Corpuscular HGB Conc 33.8 GM/DL (32-36); Mean Corpuscular Volume 90.9 FL (87-102); Mean Platelet Volume 11.3 FL (9.6-12.0); Monocytes % 1.4 % (1.7-12.7); Neutrophils % 93.9 % (38.7-73.9); Platelet Count 172 T/CUMM (130-400); Red Blood Count 4.62 MC/CUMM (3.8-5.5); Red Cell Distribution Width 12.7 % (9.3-17.3); White Blood Count 20.2 T/CUMM (4-12)
[2019-09-01 06:14] LABS: Calcium 8.8 MG/DL (8.5-10.1); Ferritin 174.3 ng/ml (8-252); Osmolality,Calculated 272.4 MOS/KG (273-304)
[2019-09-01 06:56] LABS: Anisocytosis 1+; Band Neutrophils 23 % (0-10); Lymphocytes 2 % (20-55); Platelet Estimate Normal; Segmented Neutrophils 74 % (50-85); Total Cells Counted 100
[2019-09-01 06:57] LABS: Macrocytosis Slight
[2019-09-01] MEDS ORDERED: NON-FORMULARY MEDICATION (Solifenacin [Vesicare] 10 MG) PO SCH (09:00)
[2019-09-01] MEDS: METOPROLOL TARTRATE 100 MG TABLET PO SCH ×2 (10:48→21:59)
[2019-09-01] MEDS: AZITHROMYCIN 250 MG TABLET PO SCH (10:48)
[2019-09-01] MEDS: TOLTERODINE LA 4 MG CAPSULE PO SCH (10:48)
[2019-09-01] MEDS: HYDROXYCHLOROQUINE 200 MG TABLET PO SCH ×2 (10:48→21:59)
[2019-09-01] MEDS: hydroCHLOROthiazide 12.5 MG CAPSULE PO SCH (10:48)
[2019-09-01] MEDS: PANTOPRAZOLE 40 MG TABLET PO SCH (10:48)
[2019-09-01] MEDS: ZINC SULFATE 220 MG CAPSULE PO SCH (10:48)
[2019-09-01] MEDS: SOTALOL 80 MG TABLET PO SCH ×2 (10:48→21:59)
[2019-09-01] MEDS: GABAPENTIN 600 MG TABLET PO SCH ×2 (10:48→21:59)
[2019-09-01] MEDS: cefTRIAXone 1,000 MG in SYRINGE 1 EACH IV SCH (12:16)
[2019-09-01] MEDS: ENOXAPARIN 40 MG/0.4 ML SYRINGE SUBCUT SCH (17:10)
[2019-09-02] MEDS: METOPROLOL TARTRATE 100 MG TABLET PO SCH ×2 (00:09→08:19)
[2019-09-02 05:18] LABS: Basophils # 0.1 10*3/uL (0.0-0.2); Basophils % 0.3 % (0.0-0.8); Eosinophils # 0.9 10*3/uL (0.0-0.87); Eosinophils % 4.7 % (0.00-10.9); Hematocrit 40.2 VOL% (35.7-47.0); Hemoglobin 13.3 GM/DL (12.0-16.0); Immature Granulocytes % 0.5 %; Immature Granulocytes Absolute 0.09 #; Lymphocytes % 11.3 % (21.3-54.2); Mean Corpuscular HGB Conc 33.1 GM/DL (32-36); Mean Corpuscular Volume 91.8 FL (87-102); Mean Platelet Volume 11.7 FL (9.6-12.0); Monocytes % 7.2 % (1.7-12.7); Platelet Count 192 T/CUMM (130-400); Red Blood Count 4.38 MC/CUMM (3.8-5.5); White Blood Count 18.1 T/CUMM (4-12)
[2019-09-02 05:51] LABS: Alanine Aminotransferase 21 U/L (13-56); Albumin 3.1 G/DL (3.4-5.0); Alkaline Phosphatase 65 U/L (45-117); Aspartate Amino Transferase 14 U/L (0-37); Bilirubin,Total < 0.39 MG/DL (0.2-1.0); Blood Urea Nitrogen 27 MG/DL (7-18); Calcium 8.6 MG/DL (8.5-10.1); Estimated Glom Filtration Rate 49 ML/MIN; Glucose 108 MG/DL (74-106); Osmolality,Calculated 278.8 MOS/KG (273-304)
[2019-09-02] MEDS: AZITHROMYCIN 250 MG TABLET PO SCH (08:19)
[2019-09-02] MEDS: SOTALOL 80 MG TABLET PO SCH ×2 (08:19→21:00)
[2019-09-02] MEDS: TOLTERODINE LA 4 MG CAPSULE PO SCH (08:19)
[2019-09-02] MEDS: PANTOPRAZOLE 40 MG TABLET PO SCH (08:19)
[2019-09-02] MEDS: HYDROXYCHLOROQUINE 200 MG TABLET PO SCH (08:19)
[2019-09-02] MEDS: GABAPENTIN 600 MG TABLET PO SCH ×2 (08:19→21:00)
[2019-09-02] MEDS: hydroCHLOROthiazide 12.5 MG CAPSULE PO SCH (08:20)
[2019-09-02] MEDS: cefTRIAXone 1,000 MG in SYRINGE 1 EACH IV SCH (08:20)
[2019-09-02] MEDS: ENOXAPARIN 40 MG/0.4 ML SYRINGE SUBCUT SCH (15:15)
[2019-09-03 06:52] LABS: Basophils # 0.1 10*3/uL (0.0-0.2); Basophils % 0.4 % (0.0-0.8); Eosinophils # 0.9 10*3/uL (0.0-0.87); Hematocrit 43.8 VOL% (35.7-47.0); Hemoglobin 14.8 GM/DL (12.0-16.0); Immature Granulocytes % 0.7 %; Immature Granulocytes Absolute 0.08 #; Lymphocytes # 2.8 10*3/uL (1.4-4.0); Lymphocytes % 25.4 % (21.3-54.2); Mean Corpuscular HGB Conc 33.8 GM/DL (32-36); Mean Corpuscular Volume 91.4 FL (87-102); Mean Platelet Volume 10.8 FL (9.6-12.0); Monocytes % 7.9 % (1.7-12.7); Neutrophils % 57.6 % (38.7-73.9); Platelet Count 231 T/CUMM (130-400); Red Blood Count 4.79 MC/CUMM (3.8-5.5); White Blood Count 11.2 T/CUMM (4-12)
[2019-09-03 07:14] LABS: Alanine Aminotransferase 23 U/L (13-56); Albumin 3.5 G/DL (3.4-5.0); Alkaline Phosphatase 73 U/L (45-117); Aspartate Amino Transferase 14 U/L (0-37); Bilirubin,Total < 0.39 MG/DL (0.2-1.0); Blood Urea Nitrogen 22 MG/DL (7-18); Calcium 9.1 MG/DL (8.5-10.1); Estimated Glom Filtration Rate 49 ML/MIN; Glucose 93 MG/DL (74-106); Osmolality,Calculated 277.7 MOS/KG (273-304); Total Protein 7.7 G/DL (6.4-8.3)
[2019-09-03] MEDS: GABAPENTIN 600 MG TABLET PO SCH (08:34)
[2019-09-03] MEDS: SOTALOL 80 MG TABLET PO SCH (08:34)
[2019-09-03] MEDS: PANTOPRAZOLE 40 MG TABLET PO SCH (08:34)
[2019-09-03] MEDS: METOPROLOL TARTRATE 100 MG TABLET PO SCH (08:35)
[2019-09-03] MEDS: cefTRIAXone 1,000 MG in SYRINGE 1 EACH IV SCH (08:35)
[2019-09-03] MEDS: AZITHROMYCIN 250 MG TABLET PO SCH (08:35)
[2019-09-03] MEDS: hydroCHLOROthiazide 12.5 MG CAPSULE PO SCH (08:35)
[2019-09-03 08:40] VITALS: BP 152/83
[2019-09-03] MEDS: TOLTERODINE LA 4 MG CAPSULE PO SCH (10:39)
[2019-09-03] MEDS: ZINC SULFATE 220 MG CAPSULE PO SCH (10:40)
== END 2019-09-03 11:41 | disposition home or self-care (01) | DRG 194 ==
LOC: N.ED 09:15 → N.EDINP 12:25 → N.2E 13:50
PROVIDERS: ADMIT Family Medicine; ATTEND Family Medicine